=== PATIENT | female | born 1985 | race Caucasian/White ===

== ENCOUNTER 2017-10-24 14:37 | Emergency (ER) | payer OTHER, SELFPAY ==
[2017-10-24 14:39] VITALS: BP 141/72; PULSE 106; RESP 28; TEMP 36.7; O2SAT 100; BMI 20.3
[2017-10-24 14:58] VITALS: PULSE 95; RESP 18; O2SAT 100
--- NOTE | 2017-10-24 15:12 | EKG12_ITS ---
Test Reason : TACHYCARDIA Blood Pressure : / mmHG Vent. Rate : 099 BPM Atrial Rate : 099 BPM P-R Int : 138 ms QRS Dur : 080 ms QT Int : 338 ms P-R-T Axes : 058 082 -13 degrees QTc Int : 433 ms Normal sinus rhythm with sinus arrhythmia ST & T wave abnormality, consider inferior ischemia Abnormal ECG Confirmed by REGINE WANG, AVIVA ([id number]), editorial specialist UNA JASMINE ([id number]) on 10/28/2017 1:50:46 PM Referred By: RAFAEL Confirmed By:AVIVA WEINER MD
--- NOTE | 2017-10-24 15:35 | ED.VISSUMM ---
- ER Visit Summary Date of Service: 10/24/17 Chief Complaint: Shaking History of Present Illness: The patient is a 32 F with as shaking episode. This started about an hour prior to arrival while the patient was at work. She was tremoring all over and complaining of urinary frequency. She felt that her feet and hands were numb. She has a history of anxiety, but symptoms were never this bad. No other significant medical history. She had a 12 years ago. She does smoke cigarettes. I asked her when she was alone and she said that she is not suicidal or homicidal. She denies abuse and feels safe at home. Physical Examination: Vital signs unremarkable. Afebrile. Flat affect and depressed mood. Slightly tachycardic. Lungs clear. Abdomen soft. Calves soft. No focal or lysing neurologic abnormalities. The patient is tremorous all over, almost like shivering. Test Results: We will check urinalysis, test. EKG showed sinus rhythm at a rate of 99. Nonspecific ST and T-wave changes. These may be rate related. Emergency Department Course and Treatment: Patient treated with Ativan while awaiting results. Urinalysis unremarkable. test negative. Patient was reevaluated. Symptoms have resolved. She feels better. No new or worsening issues. I believe this is likely a panic attack. Patient will be prescribed hydroxyzine. She was referred to Dr. Vargas who was on the referral list for new patients today. Patient will return if she has new or worsening issues. Treatment Plan: As above Disposition: Discharged Impression:. Anxiety This note was generated with [employer] dictation software. It may contain incorrect words, spelling, and punctuation that were not noted in review of the chart prior to signing ED Disposition - Plan for ED Patient: Chief Complaint: Anxiety Referrals: Care Physician,No Primary [Primary Care Provider] -
[2017-10-24 15:39] LABS: Bacteria 0 SEEN /hpf (None Seen); Mucous, Urine 0 SEEN /hpf (<or=2+); Red Blood Cells-Urine 0 SEEN /hpf (0-5); White Blood Cells 0 SEEN /hpf (0-5)
[2017-10-24 15:43] LABS: Color, Urine Yellow (Yellow); Glucose, Dipstick Normal (Normal); Ketone-Dipstick Negative (Negative); Leukocyte Esterase-Dipstick Negative /ul (Negative); Nitrite-Dipstick Negative (Negative); Occult Blood-Urine 10 /ul (Negative); Protein-Dipstick Negative (Negative); Urine Bilirubin Dipstick Negative (Negative); Urine Clarity Clear (Clear); Urine Urobilinogen Normal (Normal)
[2017-10-24 15:45] LABS: Internal QC Validated? YES +Cl - CLEAR BKGD; Pregnancy, Urine Negative Negative
[2017-10-24] MEDS: LORazepam 0.5 MG Tablet PO (15:45)
[2017-10-24 16:02] LABS: Squamous Epithelial Cells - UA 0-5 SEEN /hpf (5-10)
--- NOTE | 2017-10-24 16:41 | ED.DEP ---
ED Disposition - Plan for ED Patient: Chief Complaint: Anxiety Instructions: ED Panic Attack Prescriptions: Hydroxyzine HCl 25 mg PO TID #10 tab Referrals: Chris Vargas MD [NON-STAFF] -
[2017-10-24 16:49] VITALS: BP 109/57; PULSE 85; RESP 14; O2SAT 100
--- NOTE | 2017-10-24 16:50 | ED.RN ---
Verbal and written d/c instructions given. All questions answered. Gait steady out of department.
== END 2017-10-24 16:51 | disposition home or self-care (01) ==
PROVIDERS: Emergency Provider Emergency Medicine
DX: F41.9 Anxiety disorder, unspecified (principal); R35.0 Frequency of micturition; F17.210 Nicotine dependence, cigarettes, uncomplicated
CPT/HCPCS: 81001; 81025; 93005; 99284

== ENCOUNTER 2018-04-15 09:04 | Emergency (ER) | payer OTHER, SELFPAY ==
[2018-04-15 09:08] VITALS: BP 116/76; PULSE 83; RESP 18; TEMP 37.1; O2SAT 99; BMI 17.8
--- NOTE | 2018-04-15 09:15 | EKG12_ITS ---
Test Reason : ABNL PAIN Blood Pressure : / mmHG Vent. Rate : 068 BPM Atrial Rate : 068 BPM P-R Int : 152 ms QRS Dur : 072 ms QT Int : 392 ms P-R-T Axes : 060 077 050 degrees QTc Int : 416 ms Normal sinus rhythm Normal ECG Confirmed by REGINE WANG, AVIVA ([id number]), editor in chief newspaper UNA JASMINE ([id number]) on 04/20/2018 3:17:34 PM Referred By: WANDA Confirmed By:AVIVA WEINER MD
--- NOTE | 2018-04-15 09:23 | ED.VISSUMM ---
- ER Visit Summary Date of Service: 04/15/18 Chief Complaint: Epigastric pain History of Present Illness: The patient is a 32 F presents to the emergency department with epigastric pain. The patient states she has been having symptoms for months. She states no matter what she eats, she will get burning pain in her mid chest that goes up into her throat. She states that she gets the pain, she feels like she cannot breathe. She is seen her primary care multiple times. She states that she has been diagnosed with GERD. She has been on Protonix for some time. She is scheduled to see GI, but not until the of this month. She states that when the symptoms come, she feels like she cannot breathe like her throat is closing. She also has a significant history of anxiety. She says no matter what she tries, nothing is really improved her symptoms. She denies any fevers or chills. She denies any weight loss. She denies night sweats. Physical Examination: Vital signs reviewed General: Well-nourished, well-developed Head: Normocephalic, atraumatic Eyes: Pupils equal and reactive, extraocular muscles intact Neck, supple, no lymphadenopathy Heart: Regular rate and rhythm Respiratory: No distress, clear bilaterally Abdomen: Soft, mildly tender in the midepigastric area without rebound or guarding, nondistended, no peritoneal signs Back: Nontender Extremities: Nontender, no edema, no cords Skin: Normal color no rash Neuro: Alert and oriented, no focal or lateralizing deficits Test Results: [] Emergency Department Course and Treatment: The patient presents with persistent symptoms gastritis or GERD. She has minimal tenderness in the midepigastric area. EKG was obtained which was unremarkable. Chest x-ray was also obtained which was unremarkable. The patient declined GI cocktail because she states this gave me a panic attack before. She does have outpatient follow-up in place with GI. I am going to add Carafate and Bentyl to help symptom control. At this time, I do not suspect a dangerous process. I have no concern for perforation. I do feel that she can safely be followed up as an outpatient. Treatment Plan: [] Disposition: Discharge Impression: 1. Gastritis This note was generated with [employer] dictation software. It may contain incorrect words, spelling, and punctuation that were not noted in review of the chart prior to signing ED Disposition - Plan for ED Patient: Chief Complaint: Abd Pain Instructions: ED PUD Vs Gastritis Prescriptions: Dicyclomine HCl [Bentyl] 20 mg PO TIDAC #20 cap Sucralfate [Carafate] 1 gm PO 4X/DAY #100 tab Referrals: Care Physician,No Primary [Primary Care Provider] -
--- NOTE | 2018-04-15 09:37 | RAD_ITS ---
STUDY: X-RAY CHEST REASON FOR EXAM: Female, 32 years old. CHEST PAIN; REFLUX TECHNIQUE: Frontal and lateral views of the chest. COMPARISON: None. FINDINGS: The lungs are clear and expanded. There is no demonstrated pleural abnormality. Normal size heart. Normal mediastinum and alee. Normal visualized pulmonary arteries. Normal visualized aortic arch and descending thoracic aorta. Normal visualized thoracic spine. Normal visualized ribs, clavicles, and shoulders. There is no demonstrated abnormality of the visualized soft tissue structures of the upper abdomen. RAD/Chest PA and Lateral IMPRESSION: Normal x-ray examination of the chest. Electronically Signed: Mag Tillman MD at 10:22 EDT Tel , Service support ,
[2018-04-15 10:16] VITALS: BP 117/64; PULSE 59; RESP 16; O2SAT 100
== END 2018-04-15 10:21 | disposition home or self-care (01) ==
LOC: ED 10:19
PROVIDERS: Emergency Provider Emergency Medicine; Family Provider Physician Assistant; PCP Physician Assistant
DX: K29.70 Gastritis, unspecified, without bleeding (principal); K21.9 Gastro-esophageal reflux disease without esophagitis
CPT/HCPCS: 71046; 93005; 99283

== ENCOUNTER 2018-11-15 15:59 | Emergency (ER) | payer MEDICAID, SELFPAY ==
[2018-11-15 16:00] VITALS: BP 112/77; PULSE 86; RESP 16; TEMP 37; O2SAT 99; BMI 19.4
--- NOTE | 2018-11-15 16:17 | CT_ITS ---
STUDY: CT ABDOMEN AND PELVIS WITHOUT CONTRAST REASON FOR EXAM: Female, 33 years old. Left flank pain. RADIATION DOSAGE (If Supplied By Facility): CTDIvol = ( 6.44 ) mGy, DLP = ( 330.01 ) mGycm TECHNIQUE: Transaxial images were obtained from the dome of the diaphragm to the symphysis pubis without oral contrast, and without intravenous contrast. Sagittal and coronal images were reconstructed. Individualized dose optimization techniques were used for this CT. COMPARISON: None. FINDINGS: The visualized lung bases are unremarkable. The visualized portions of the heart are within normal limits. Normal liver. Normal gallbladder and extrahepatic biliary system. Normal spleen. Normal pancreas. Normal bilateral adrenal glands. Right kidney has a punctate nonobstructing lower pole stone, and is otherwise normal. Normal left kidney. No hydronephrosis on either side. No evidence for renal masses. Evaluation of the GI tract is limited by absence of oral contrast. Cannot exclude stomach wall thickening. No dilated loops of bowel or evidence for obstruction. Cannot exclude segmental thickening of the dunn of the small or large bowel. Cannot exclude enteritis or colitis. Moderate diffuse fecal retention. Appendix within normal limits. Normal abdominal aorta. Normal inferior vena cava. Normal retroperitoneum. Normal urinary bladder. Normal visualized uterus. Normal abdominal wall. Normal osseous structures. CT/Abdomen/Pelvis without Cont IMPRESSION: No definite acute abnormality. Tiny nonobstructing stone of the right kidney. Moderate fecal retention. Electronically Signed: Nikko Love MD at 17:42 EDT , Service support ,
--- NOTE | 2018-11-15 16:17 | ED.VIS.GEN ---
History of Present Illness Chief Complaint: Complaint Informant: Patient, Significant Other Onset: Days - 4 Timing: Waxes and wanes Narrative: Waxing and waning left flank pain for 4 days, pain with moved to the side. Yesterday noted dysuria. No fevers. No vomiting. Mild nausea. History of kidney stones in the past unsure when her last one was. None needed intervention. Does not follow urology. Ibuprofen taken at 9 AM. Saw a urgent care urine with blood questionable infection. Was sent here for evaluation. Reports currently pain is a 4. Normal bowel movements. No fevers. No history of gastric ulcers or kidney injury. Last menstrual period 2 weeks ago. Prior similar symptoms: Yes Past Medical History - Allergies and Home Meds Allergies/Adverse Reactions: Allergies aspirin Adverse Reaction (Verified 11/15/18 16:00) Other HEART RACE, PINS & NEEDLES IN MY FEET Primary Care Physician: Jean Farrar PA [Primary Care Provider] - Smoking Status: Current every day smoker Review of Systems General: Denies: Chills, Fever, Sweats Eyes: Denies: Visual changes - bilaterally, Diplopia ENT: Denies: Rhinorrhea, Sore throat Cardiovascular: Denies: Chest pain, Palpitations Respiratory: Denies: Dyspnea, Cough, Dyspnea on exertion Gastrointestinal: Reports: Nausea Genitourinary: Reports: Dysuria. Denies: Hematuria, Frequency Musculoskeletal: Reports: Back pain Skin: Denies: Rash, Wounds Neurological: Denies: Headache, Weakness, Numbness Physical Exam Vital Signs/Narrative: Vital Signs Temp Pulse Resp BP Pulse Ox 11/15/18 16:00 98.6 F 86 16 112/77 99 Inital Vital Signs reviewed: Yes General: Well nourished, Well developed, No Acute Distress Head: Normocephalic, Atraumatic Eyes: Perrl, EOMI ENT: Moist mucous membranes, No rhinorrhea Neck: Supple, Nontender Cardiovascular: Regular rate, Regular rhythm, No murmurs Respiratory: No distress, CTA bilaterally, Chest nontender Abdomen: Soft, Nontender, Nondistended, Normal bowel sounds Back: Nontender, Normal Inspection, - - No CVA tenderness, no rash. Extremities: Nontender, No edema Skin: Normal color, No rash Neurological: Alert, Oriented x3, Cranial nerves II-XII grossly intact, Normal Strength, Normal Sensation Psychological: Normal affect, Normal Mood Diagnostic/Tx/Re-eval Abnormal Lab Results 11/15/18 11/15/18 11/15/18 16:24 16:24 16:24 WBC 6.3 RBC 4.09 L Hgb 12.2 Hct 37.3 MCV 91.2 MCH 29.8 MCHC 32.7 RDW 12.9 RDW Differential 42.9 Plt Count 226 MPV 10.0 Immature Gran % (Auto) 0.200 Neut % (Auto) 51.1 Lymph % (Auto) 38.7 [place] % (Auto) 8.7 Eos % (Auto) 1.0 Baso % (Auto) 0.3 Absolute Neuts (auto) 3.2 Absolute Lymphs (auto) 2.44 Total Counted Not Reportable Sodium 137 Potassium 3.6 Chloride 108 H Carbon Dioxide 24.0 Anion Gap 5 BUN 14 Creatinine 0.71 Estim Creat Clear Calc 100.34 Est GFR (MDRD) Af Amer 121 Est GFR (MDRD) Non-Af 100 BUN/Creatinine Ratio 19.6 Glucose 89 Calcium 8.5 Serum , Qual NEGATIVE Urine Color Urine Clarity Urine pH Ur Specific [place] Urine Protein Urine Glucose (UA) Urine Ketones Urine Occult Blood Urine Nitrite Urine Bilirubin Urine Urobilinogen Ur Leukocyte Esterase Urine RBC Urine WBC Ur Squamous Epith Cells Urine Bacteria Urine Mucus 11/15/18 16:34 WBC RBC Hgb Hct MCV MCH MCHC RDW RDW Differential Plt Count MPV Immature Gran % (Auto) Neut % (Auto) Lymph % (Auto) [place] % (Auto) Eos % (Auto) Baso % (Auto) Absolute Neuts (auto) Absolute Lymphs (auto) Total Counted Sodium Potassium Chloride Carbon Dioxide Anion Gap BUN Creatinine Estim Creat Clear Calc Est GFR (MDRD) Af Amer Est GFR (MDRD) Non-Af BUN/Creatinine Ratio Glucose Calcium Serum , Qual Urine Color Yellow Urine Clarity Clear Urine pH 6.0 Ur Specific [place] 1.020 Urine Protein Negative Urine Glucose (UA) Normal Urine Ketones Negative Urine Occult Blood 25 H Urine Nitrite Negative Urine Bilirubin Negative Urine Urobilinogen 1 H Ur Leukocyte Esterase 25 H Urine RBC 0-5 SEEN Urine WBC 0-5 SEEN Ur Squamous Epith Cells 0-5 SEEN Urine Bacteria RARE Urine Mucus 3+ CT abdomen pelvis: No obstructive uropathy. Normal appendix. - Medical Decision Making Patient vital signs stable. She declines any medications. Renal stone protocol initiated due to her history. CT scan negative. Labs stable urine did note slight hematuria leukocytes and mucus. Urine culture sent. With her being symptomatic with dysuria will place on antibiotics. Prescription for Keflex along with first dose given the ED. She has antiemetics at home. Should continue Tylenol or Motrin as needed. She will follow-up as an outpatient. All questions were answered. ED Disposition - Plan for ED Patient: Disposition: Home or Assisted Living Diagnosis: Urinary tract infection, Flank pain Instructions: ED UTI Cystitis Female, ED Flank Pain Uncertain Cause Prescriptions: Cephalexin [Keflex] 500 mg PO Q12 #14 capsule Referrals: Jean Farrar PA [Primary Care Provider] - 3-5 Days if not improving
[2018-11-15] MEDS: 0.9% Normal Saline 1,000 ML 250 ML IV (16:31)
[2018-11-15 16:44] LABS: Color, Urine Yellow (Yellow); Glucose, Dipstick Normal (Normal); Ketone-Dipstick Negative (Negative); Leukocyte Esterase-Dipstick 25 /ul (Negative); Nitrite-Dipstick Negative (Negative); Occult Blood-Urine 25 /ul (Negative); Protein-Dipstick Negative (Negative); Urine Bilirubin Dipstick Negative (Negative); Urine Clarity Clear (Clear); Urine Urobilinogen 1 mg/dl (Normal)
[2018-11-15 16:55] LABS: Absolute Lymphocyte Count 2.44 X10^3/ul (0.83-4.51); Absolute Neutrophil Count 3.2 X10^3/uL (2.0-7.7); Basophil# 0.02 X10^3/uL; Basophil% 0.3 % (0-1); Eosinophil# 0.06 X10^3/uL; Hematocrit 37.3 % (37-47); Hemoglobin 12.2 g/dl (12.0-15.0); Lymphocyte # 2.44 X10^3/ul (4.0); Lymphocyte % 38.7 % (19-41); Mean Corp Hgb Conc 32.7 g/gl (32-36); Mean Corpuscular Hgb 29.8 pg (27.0-32.0); Mean Corpuscular Volume 91.2 fL (81-99); Monocyte# 0.55 X10^3/uL; Monocyte% 8.7 % (0-10); Neutrophil # 3.22 X10^3/uL (2.7-7.7); Neutrophil % 51.1 % (47-70); POSITIVE COUNT NO; POSITIVE DIFFERENTIAL NO; POSITIVE MORPHOLOGY NO; Platelet Count 226 K/mm3 (150-450); RBC Distribution Width CV 12.9 % (11.6-14.6); RBC Distribution Width SD 42.9 fl (35.1-43.9); Red Blood Count 4.09 M/mm3 (4.2-5.4); White Blood Count 6.3 K/mm3 (4.4-11.0)
[2018-11-15 16:58] VITALS: BP 114/75; PULSE 75; RESP 16; TEMP 37.2; O2SAT 98
[2018-11-15 17:00] LABS: Anion Gap 5 (5-15); BUN 14 mg/dL (7-18); BUN/Creat Ratio 19.6 RATIO (10-20); Calcium,Total 8.5 mg/dL (8.5-10.1); Chloride 108 mmol/L (98-107); Creatinine, Serum 0.71 mg/dL (0.55-1.02); EST Glomerular Filtration Rate 100 mL/min (>60); Est Glom Filt Rate - Afr Amer 121 mL/min (>60); Estimated Creatinine Clearance 100.34 ml/min; Glucose 89 mg/dL (74-106); Potassium 3.6 mmol/L (3.5-5.1); Sodium Level 137 mmol/L (136-145)
[2018-11-15 17:07] LABS: Internal QC Validated? YES +Cl - CLEAR BKGD; Pregnancy, Serum, hCG Quali. NEGATIVE Negative
[2018-11-15 17:20] LABS: Bacteria RARE /hpf (None Seen); Mucous, Urine 3+ /hpf (<or=2+); Red Blood Cells-Urine 0-5 SEEN /hpf (0-5); Squamous Epithelial Cells - UA 0-5 SEEN /hpf (5-10); White Blood Cells 0-5 SEEN /hpf (0-5)
[2018-11-15 17:29] VITALS: BP 112/87; PULSE 74; RESP 16; TEMP 36.9; O2SAT 98
[2018-11-15 18:14] VITALS: BP 104/72; PULSE 69; RESP 15; O2SAT 100
[2018-11-15] MEDS: Cephalexin 250 MG Capsule 500 MG PO (18:22)
== END 2018-11-15 18:25 | disposition home or self-care (01) ==
PROVIDERS: Emergency Provider Emergency Medicine; Family Provider Physician Assistant; PCP Physician Assistant
DX: N39.0 Urinary tract infection, site not specified (principal); R10.9 Unspecified abdominal pain; F17.200 Nicotine dependence, unspecified, uncomplicated
CPT/HCPCS: 74176; 80048; 81001; 84703; 85025; 87086; 87088; 99283; J7030; A4216

== ENCOUNTER 2020-04-20 15:14 | Emergency (ER) | payer MEDICAID, SELFPAY ==
[2020-04-20 15:16] VITALS: BP 118/70; PULSE 109; RESP 18; TEMP 36.5; O2SAT 98; BMI 19.3
[2020-04-20 15:38] LABS: Bacteria 0 SEEN /hpf (None Seen); Mucous, Urine 0 SEEN /hpf (<or=2+); Red Blood Cells-Urine 0 SEEN /hpf (0-5); White Blood Cells 0 SEEN /hpf (0-5)
[2020-04-20 15:53] LABS: Color, Urine Yellow (Yellow); Glucose, Dipstick Normal (Normal); Ketone-Dipstick Negative (Negative); Leukocyte Esterase-Dipstick Negative /ul (Negative); Nitrite-Dipstick Negative (Negative); Occult Blood-Urine 10 /ul (Negative); Protein-Dipstick Negative (Negative); Specific Gravity, Urine 1.015 (1.002-1.030); Urine Bilirubin Dipstick Negative (Negative); Urine Clarity Sl. Cloudy (Clear); Urine Urobilinogen Normal (Normal)
--- NOTE | 2020-04-20 15:53 | CT_ITS ---
STUDY: CT ABDOMEN AND PELVIS WITHOUT CONTRAST REASON FOR EXAM: Female, 34 years old. BILAT FLANK PAIN, HX [place] RADIATION DOSAGE (If Supplied By Facility): CTDIvol = ( 6.88 ) mGy, DLP = ( 339.00 ) mGycm TECHNIQUE: Transaxial images were obtained from the dome of the diaphragm to the symphysis pubis without oral contrast, and without intravenous contrast. Sagittal and coronal images were reconstructed. Individualized dose optimization techniques were used for this CT. COMPARISON: None. FINDINGS: The visualized lung bases are unremarkable. The visualized portions of the heart are within normal limits. Normal liver. The gallbladder is contracted. Normal spleen. Normal pancreas. Normal bilateral adrenal glands. Normal right kidney. Normal left kidney. Normal visualized stomach. Normal small intestine. Normal colon. The appendix is visualized and appears normal. Normal abdominal aorta. Normal inferior vena cava. Normal retroperitoneum. Normal urinary bladder. Normal abdominal wall. Normal osseous structures. CT/Abdomen/Pelvis without Cont IMPRESSION: Normal unenhanced CT of the abdomen and pelvis. Electronically Signed: Sung Peterson MD at 16:39 EDT Tel , Service support ,
--- NOTE | 2020-04-20 15:54 | ED.DCSUM_ITS ---
- ER Visit Summary Date of Service: 04/20/20 Chief Complaint: [Abdominal pain] History of Present Illness: The patient is a 34 F [presents to the emergency department with complaint of abdominal pain that started about a week and a half ago. Initially the pain was intermittent. She describes pain in her back as well. Patient has history of kidney stones and is concerned she may have a stone. She denies urinary symptoms. She had no fever. She has had nausea but no vomiting. She is been eating normally. Patient states her pain was a 9 out of 10 when she came in but now is better and rates it about a 5 out of 10. Her last menstrual period was 2 weeks ago. She does not believe that she is preg nant because her significant other is had a vasectomy.] Physical Examination: [HEENT-PERRLA, EOMI. Cranial nerves II through XII grossly intact. TMs clear. Mucous membranes moist. No adenopathy. Cardiovascular-regular rate and rhythm without murmur or ectopy Lungs-clear to auscultation, chest wall stable without crepitus or subcu emphysema Abdomen-normoactive bowel sounds, soft. Patient has tenderness palpation diffusely over the right lower quadrant as well as the left lower quadrant. Mild CVA tenderness on the left. Patient has no rebound, rigidity, or periton eal signs. Extremities-intact ?4, normal range of motion, normal pulses, atraumatic] Test Results: [CBC with differential obtained showing of 8.6, hemoglobin 12, hematocrit 39, platelet 85. Chemistries unremarkable. hCG was negative. Urinalysis unremarkable. CT scan of the abdomen pelvis showed nothing acute] Emergency Department Course and Treatment: [IV line established on arrival. Patient refused any pain medication.] Treatment Plan: [Patient advised to use ibuprofen or Tylenol for discomfort. Patient to follow-up with her primary care physician in 3 to 5 days. She is advised to return if worsening pain, fever, vomiting, or conditions worsen anyway.] Disposition: [Discharged home in stable condition] Impression: [Abdominal pain-etiology uncertain] This note was generated with [employer] software. It may contain incorrect words, spelling, and punctuation that were not noted in review of the chart prior to signing ED Disposition - Plan for ED Patient: Referrals: Jean Farrar PA [Primary Care Provider] -
[2020-04-20] MEDS: 0.9% Normal Saline 1,000 ML 125 ML IV (16:02)
[2020-04-20 16:04] LABS: Absolute Lymphocyte Count 2.91 X10^3/uL (0.83-4.51); Absolute Neutrophil Count 5.1 X10^3/uL (2.0-7.7); Basophil# 0.03 X10^3/uL; Basophil% 0.3 % (0-1); Eosinophil# 0.12 X10^3/uL; Eosinophils% 1.4 % (0-5); Hematocrit 38.7 % (37-47); Hemoglobin 12.4 g/dL (12.0-15.0); Lymphocyte # 2.91 X10^3/ul (4.0); Lymphocyte % 33.7 % (19-41); Mean Corpuscular Hgb 30.6 pg (27.0-32.0); Mean Corpuscular Volume 95.6 fL (81-99); Mean Platelet Vol. 10.3 fl (6.2-12.0); Monocyte# 0.48 X10^3/uL; Monocyte% 5.6 % (0-10); NRBC Flagged by Analyzer 0 % (0-5); Neutrophil # 5.07 X10^3/uL (2.7-7.7); Neutrophil % 58.8 % (47-70); Platelet Count 285 K/mm3 (150-450); RBC Distribution Width CV 12.8 % (11.6-14.6); RBC Distribution Width SD 45.1 fl (35.1-43.9); Red Blood Count 4.05 M/mm3 (4.2-5.4); White Blood Count 8.6 K/mm3 (4.4-11.0)
[2020-04-20 16:09] LABS: Internal QC Validated? YES +Cl - CLEAR BKGD; Pregnancy, Serum, hCG Quali. NEGATIVE Negative
[2020-04-20 16:14] LABS: Anion Gap 2 (5-15); BUN 11 mg/dL (7-18); BUN/Creat Ratio 14.2 RATIO (10-20); Calcium,Total 8.8 mg/dL (8.5-10.1); Chloride 107 mmol/L (98-107); Creatinine, Serum 0.77 mg/dL (0.55-1.02); EST Glomerular Filtration Rate 90 mL/min (>60); Est Glom Filt Rate - Afr Amer 109 mL/min (>60); Estimated Creatinine Clearance 88.41 ml/min; Glucose 111 mg/dL (74-106); Potassium 3.7 mmol/L (3.5-5.1); Sodium Level 138 mmol/L (136-145)
[2020-04-20 17:10] LABS: Amorphous Sediment 3+; Coarse Granular Cast 5-10 SEEN /lpf (0-5 /lpf); Squamous Epithelial Cells - UA 5-10 SEEN /hpf (5-10)
--- NOTE | 2020-04-20 17:17 | ED.DEP ---
ED Disposition - Plan for ED Patient: Instructions: ED Abdominal Pain Unkn Cause Fem Referrals: Jean Farrar PA [Primary Care Provider] - 3-5 Days
[2020-04-20 17:27] VITALS: BP 93/58; PULSE 71; RESP 17; O2SAT 100
== END 2020-04-20 17:29 | disposition home or self-care (01) ==
LOC: ED 16:13
PROVIDERS: Emergency Provider Emergency Medicine; PCP Physician Assistant
DX: R10.31 Right lower quadrant pain (principal); R10.32 Left lower quadrant pain; Z87.442 Personal history of urinary calculi; Z72.0 Tobacco use
CPT/HCPCS: 74176; 80048; 81001; 84703; 85025; 96360; 99282; J7030; A4216

== ENCOUNTER 2020-12-02 14:27 | Emergency (ER) | payer MEDICAID, SELFPAY ==
[2020-12-02 14:28] VITALS: BP 106/66; PULSE 84; RESP 16; TEMP 36.4; O2SAT 99; BMI 20.8
--- NOTE | 2020-12-02 14:54 | EDS_ITS ---
HPI History of Present Illness Chief Complaint: Laceration Detail of Chief Complaint: Injury to left jaw that occurred prior to arrival in the emergency departme Informant: patient Narrative Narrative: Patient states that she was fishing and she try to set the hook on a fish when the 1 ounce sinker came flying out of the water and struck her in the left side of the jaw. No loss of consciousness. She did sustain a laceration to the jaw. Patient unsure of her last tetanus shot. Tetanus Immunization: Unknown Prior similar symptoms: No PFSH PFS Medical History (Updated 12/02/20 @ 15:[address] Sparkle Bender, DO) Anxiety Home Medications Clonazepam 0.5 mg PO BID 04/15/18 [History Last Taken 11/15/18] Allergy/AdvReac Type Severity Reaction Status Date / Time aspirin AdvReac Other Verified 12/02/20 14:27 Social History Smoking Status: Current every day smoker ROS ROS ED Constitutional Constitutional ED: Reports systems reviewed and no addt'l complaints, except as documented; Denies body ache(s), change in weight or chills Eyes Eyes: Denies acute decrease in peripheral vision, change in vision, double vision or loss of vision ENT ENT ED: Reports none and other Details: Laceration left mandible ; Denies ear p ain, lip swelling, loss taste/smell, neck pain, otalgia or sore throat Cardiovascular Cardiovascular: Reports none; Denies abdominal pain, chest pain with activity, leg edema, lightheadedness, palpitations, rapid heart rate or syncope Respiratory/Chest Respiratory/Chest: Reports none; Denies change in mental status, dry cough, dyspnea, hemoptysis, shortness of breath at rest or shortness of breath with exertion Gastrointestinal Gastrointestinal: Reports none; Denies abdominal pain, change in stool charac ter, diarrhea, hematemesis, hematochezia, melena, rectal bleeding or vomiting Genitourinary Genitourinary ED: Reports none; Denies abdominal discomfort, anuria, dysuria, genital pain or polyuria Musculoskeletal Musculoskeletal: Reports none; Denies arthralgias, back pain, difficulty walking, extremity pain, muscle weakness or myalgias Integumentary Reports none; Denies abscess or rash Neurologic Neurologic: Reports none; Denies abnormal gait, confusion, focal weakness, frequent falls, headache(s), loss of vision, numbness, paresthesias, radicular pain, vertigo or weakness Psychiatric Psychiatric: Reports systems reviewed and no addt'l complaints, except as documented and none; Denies behavioral changes, confusion, difficulty conc entrating, hallucinations, suicidal ideation, tactile hallucinations or visual hallucinations Endocrine Endocrinology: Denies none, cold intolerance, excessive sweating, fatigue or heat intolerance Hematologic/Lymphatic Hematologic/Lymphatic: Reports none; Denies anemia, easy bleeding or easy bruising Allergic/Immunologic Allergic/Immunologic ED: Denies as per HPI, none, lip swelling, mouth swelling, throat swelling, tongue swelling or hives EXAM Physical Exam Const Vital Signs: 12/02/20 14:28 Temperature 97.6 F L Temperature Source Temporal Pulse Rate 84 Respiratory Rate 16 Blood Pressure 106/66 Blood Pressure Mean 79 Pulse Ox 99 Oxygen Delivery Method Room Air Positive well nourished and well developed General Appearance ED: well developed and NAD HEENT Reports TM's clear and moist mucous membranes HEENT Narrative: Patient has a 1.5 cm laceration that is Y-shaped over the left mandible region. No real bony tenderness on exam over the mandible. She is able to bite down on a tongue blade and hold in place against resistance. No malocclusion noted. normocephalic and atraumatic; Negative for trauma or tenderness Tympanic Membrane ED: Yes TM's clear Eyes PERRL and EOMs intact bilaterally General Eye ED: Negative for pale conjunctiva or scleral icterus Neck no lymphadenopathy, supple and no JVD General: Negative for tenderness Chest Wall inspection of chest normal and palpation of chest normal Chest: Negative for tenderness Resp normal respiratory effort and clear to auscultation bilaterally Effort and Inspection: Negative for respiratory distress or pain with movement Auscultation: Negative for rhonchi, wheezes or diminished lung sounds Cardio regular rate, regular rhythm, S1 normal heart sound, S2 normal heart sound and no murmurs Peripheral Pulses: pulses 2+ throughout GI normal to inspection, nondistended, normoactive bowel sounds, soft to palpation, non-tender, non-distended and no masses Back/Spine no CVA tenderness and no thoracic nor lumbar tenderness Extremity normal to inspection General Extremety ED: Negative for edema General Extremity: Negative for edema Neuro oriented x3, CN's II-XII intact bilaterally, no sensory deficits noted and gait normal Sensorium / Orientation: awake, alert, oriented to person, oriented to place and oriented to time Motor Exam: strength 5/5 throughout and strength abnormal Psych mental status grossly normal Skin no rashes or lesions noted and no wounds PROC Procedures Lacerations Chin laceration: Length: 0.39 in Depth: Skin Prep: Sterile Conditions and Shure-Clens Irrigated (ml): 50 Number of Sutures/Gazelle: 2 Suture Information: Ethilon and Simple MDM MDM MDM Narrative Medical decision making narrative: Patient to follow-up with primary care physician in 5 to 7 days for suture removal. To return if increasing pain, redness, swelling, purulent drainage, or conditions worsen anyway. Discharge Plan Triage Chief Complaint: Laceration ED Provider: Sparkle Bender Dx/Rx/DC Orders Clinical Impression: Chin laceration Instructions: ED Laceration, Face: Stitches or Tape Prescriptions: No Action Clonazepam 0.5 MG tablet 0.5 mg PO BID RF: 0 Primary Care Provider: Jean Farrar Referrals: Jean Farrar PA [Primary Care Provider] - 5 Days for suture removal Disposition Disposition: Home, self care
[2020-12-02] MEDS: Lidocaine 1% (20 ml mdv) 20 ML Vial INFILT (15:14)
[2020-12-02] MEDS: Diphth,Pertuss(Acell),Tet Vac 0.5 ML Vial IM (15:52)
== END 2020-12-02 15:56 | disposition home or self-care (01) ==
PROVIDERS: Emergency Provider Emergency Medicine; PCP Physician Assistant
DX: S01.81XA Laceration without foreign body of other part of head, initial encounter (principal); F41.9 Anxiety disorder, unspecified; F17.200 Nicotine dependence, unspecified, uncomplicated; Z79.82 Long term (current) use of aspirin; W20.8XXA Other cause of strike by thrown, projected or falling object, initial encounter; Y93.89 Activity, other specified; Y92.89 Other specified places as the place of occurrence of the external cause; Y99.9 Unspecified external cause status
CPT/HCPCS: 12011; 90471; 90715; 99283; J7050; A4216

== ENCOUNTER 2021-04-21 15:58 | Emergency (ER) | payer MEDICAID, SELFPAY ==
[2021-04-21 15:58] VITALS: BP 133/78; PULSE 98; RESP 18; TEMP 37.1; O2SAT 100; BMI 19.1
[2021-04-21 16:25] VITALS: BP 133/78; PULSE 98; RESP 18; TEMP 37.1; O2SAT 100
--- NOTE | 2021-04-21 16:46 | EX.ED.DYSGE1 ---
HPI History of Present Illness Chief Complaint: General Illness Informant: patient and spouse/S.O. Narrative Narrative: 35-year-old female presents to the emergency room with concerns for COVID-19 infection. Patient states for the past 3 days she has lost her sense of taste. She notes some fatigue and nausea. No shortness of breath or significant cough. Her mother was just admitted with COVID-19. She is unvaccinated. [facility] Medical History Anxiety Home Medications Clonazepam 0.5 mg PO BID 04/15/18 [History Last Taken 11/15/18] omeprazole 40 mg PO DAILY 04/21/21 [History Last Taken Unknown] venlafaxine 37.5 mg PO DAILY 04/21/21 [History Last Taken Unknown] Allergy/AdvReac Type Severity Reaction Status Date / Time aspirin AdvReac Other Verified 12/02/20 14:27 Surgical History H/O hernia repair Social History (Updated 04/21/21 @ 16:[address] Bakari Cochran DO) Smoking Status: Current every day smoker tobacco type: cigarettes substance use type: does not use ROS ROS ED Constitutional Constitutional ED: Reports chills and sweats; Denies weight loss Eyes Eyes: Denies change in vision or diplopia ENT ENT ED: Reports other Details: Loss of taste ; Denies ear pain, rhinorrhea or sore throat Cardiovascular Cardiovascular: Denies chest pain, orthopnea, palpitations or racing heartbeat Respiratory/Chest Respiratory/Chest: Denies cough, dyspnea or orthopnea Gastrointestinal Gastrointestinal: Reports nausea; Denies abdominal pain, diarrhea or vomiting Genitourinary Genitourinary ED: Denies dysuria, hematuria or urinary frequency Musculoskeletal Musculoskeletal: Reports myalgias; Denies arthralgias Integumentary Denies abscess or rash Neurologic Neurologic: Reports headache(s); Denies weakness Psychiatric Psychiatric: Denies anxiety, depression, suicidal ideation or suicidal thoughts Endocrine Endocrinology: Denies polydipsia, polyphagia or polyuria Allergic/Immunologic Allergic/Immunologic ED: Denies mouth swelling, tongue swelling or urticaria EXAM Physical Exam Const Vital Signs: 04/21/21 15:58 04/21/21 16:08 04/21/21 16:25 Temperature 98.7 F 98.7 F Temperature Source Temporal Oral Pulse Rate 98 98 Respiratory Rate 18 18 Respiratory Effort Normal Non-Labored Respiratory Pattern Normal Blood Pressure 133/78 H 133/78 H Blood Pressure Mean 96 96 Pulse Ox 100 100 Oxygen Delivery Method Room Air Room Air Positive well nourished and well developed General Appearance ED: well developed HEENT Reports normocephalic, head/scalp atraumatic and moist mucous membranes Eyes PERRL and EOMs intact bilaterally Neck no lymphadenopathy, supple and no JVD Resp normal respiratory effort and clear to auscultation bilaterally Cardio regular rate, regular rhythm and no murmurs GI normal to inspection, nondistended, normoactive bowel sounds and non-tender Palpation: soft Back/Spine no CVA tenderness and normal ROM Extremity normal to inspection General Extremety ED: Negative for edema General Extremity: Negative for edema Neuro oriented x3 and CN's II-XII intact bilaterally Sensorium / Orientation: alert Motor Exam: strength 5/5 throughout Psych mental status grossly normal Mood & Affect: Negative for depressed or tearful Skin no rashes or lesions noted and no wounds MDM MDM MDM Narrative Medical decision making narrative: Patient's Covid test is positive. She is currently 100% on room air. Patient will be discharged home with supportive care return if worsening or concerns Discharge Plan Triage Chief Complaint: General Illness ED Provider: Bakari Cochran Dx/Rx/DC Orders Clinical Impression: COVID-19 Instructions: Coronavirus Disease 2019 (COVID-19): Caring for Yourself or Others Prescriptions: No Action Clonazepam 0.5 MG tablet 0.5 mg PO BID RF: 0 omeprazole 40 mg capsule,delayed release(DR/EC) 40 mg PO DAILY RF: 0 venlafaxine 37.5 mg tablet 37.5 mg PO DAILY RF: 0 Primary Care Provider: Jean Farrar Referrals: Jean Farrar, PA [Primary Care Provider] - As Needed Disposition Disposition: Home, Self Care
[2021-04-21 17:59] VITALS: PULSE 80; RESP 15; O2SAT 100
== END 2021-04-21 17:59 | disposition home or self-care (01) ==
PROVIDERS: Emergency Provider Emergency Medicine; PCP Physician Assistant
DX: U07.1 COVID-19 (principal); F17.210 Nicotine dependence, cigarettes, uncomplicated; F41.9 Anxiety disorder, unspecified; Z79.82 Long term (current) use of aspirin; Z28.3 Underimmunization status
CPT/HCPCS: 87426; 99282

== ENCOUNTER 2024-11-13 18:22 | Emergency (ER) | payer OTHER, SELFPAY ==
[2024-11-13 18:23] VITALS: BP 115/69; PULSE 82; RESP 18; TEMP 35.5; O2SAT 100; BMI 21.1
--- NOTE | 2024-11-13 18:31 | EX.ED.UPPERE ---
HPI History of Present Illness HPI Narrative: Patient presents with foreign body in her left thumb that occurred today. Patient states she opened a new fishing lower out of the package and the hook went into her thumb. Patient states her pain is aching. Patient states it is localized to the left thumb. Patient denies any paresthesias or weakness. Patient states her last tetanus was 1 to 2 years ago. Chief Complaint: Foreign Body Informant: patient Occured/Mechanism Mechanism/Context: Yes puncture wound Onset/Context/Timing Onset: Today Context: Sudden Onset Timing: Continuous Quality of Pain: Aching Location: Left thumb Worsened by: Movement Relieved by: Nothing Associated Symptoms Associated Symptoms: Negative for Parasthesia, Weakness or Loss of Funtion [facility] Medical History Anxiety Home Medications ?Medication ?Instructions ?Recorded ?Last Taken ?Type Clonazepam 0.5 mg PO BID 04/15/18 11/15/18 History omeprazole 40 mg capsule,delayed 40 mg PO DAILY 04/21/21 Unknown History release venlafaxine 37.5 mg tablet 37.5 mg PO DAILY 04/21/21 Unknown History Allergy/AdvReac Type Severity Reaction Status Date / Time aspirin AdvReac Other Verified 11/13/24 18:23 Surgical History H/O hernia repair Social History Smoking Status: Current every day smoker tobacco type: cigarettes substance use type: does not use ROS ROS ED Constitutional Constitutional ED: Denies chills or fever(s) Eyes Eyes: Denies blurry vision or change in vision ENT ENT ED: Denies rhinorrhea or sore throat Cardiovascular Cardiovascular: Denies chest pain or palpitations Respiratory/Chest Respiratory/Chest: Denies cough or dyspnea Gastrointestinal Gastrointestinal: Denies nausea or vomiting Genitourinary Genitourinary ED: Denies dysuria or hematuria Musculoskeletal Musculoskeletal: Denies back pain or neck pain Integumentary Denies abscess or rash Neurologic Neurologic: Denies headache(s) or weakness Allergic/Immunologic Allergic/Immunologic ED: Denies mouth swelling or urticaria EXAM Physical Exam Const Vital Signs: 11/13/24 18:23 Temperature 96 F L Temperature Source Temporal Pulse Rate 82 Respiratory Rate 18 Blood Pressure 115/69 Blood Pressure Mean 84 Pulse Ox 100 Oxygen Delivery Method Room Air Positive well nourished and well developed General Appearance ED: well developed and NAD HEENT Reports moist mucous membranes Neck full ROM and supple Extremity Extremity Narrative: There is a fishing lure and hook embedded in the volar aspect of the left thumb near the IP joint. There is no active bleeding noted. Range of motion was limited in flexion of the IP and MP joint secondary to pain. Sensation was intact to light touch in all digits. Capillary refill was less than 2 seconds in all digits. Neuro oriented x3, CN's II-XII intact bilaterally, moves all extremities, no focal motor deficits and no sensory deficits noted Sensorium / Orientation: alert Motor Exam: strength 5/5 throughout Psych mental status grossly normal MDM MDM MDM Narrative Medical decision making narrative: The left thumb was cleaned and anesthetized 1% lidocaine via digital block. The fishhook was pushed through the skin and the laura was cut off. The hook was then removed without difficulty. Patient tolerated procedure well. Bacitracin dressing was applied. Since the hook was brand-new out of the package, I do not feel the patient requires antibiotics at this time. Patient and spouse understand and are agreeable with the plan. All questions were answered. Discharge Plan Triage Chief Complaint: Foreign Body ED Provider: Caleb Glynn Dx/Rx/DC Orders Clinical Impression: Acute foreign body of left thumb, Tobacco use Instructions: ED Foreign Body, Soft Tissue (Removed) Prescriptions: No Action Clonazepam 0.5 MG tablet 0.5 mg PO BID omeprazole 40 mg capsule,delayed release(DR/EC) 40 mg PO DAILY Patient Comments: TAKE 1 CAPSULE BY MOUTH ONCE DAILY venlafaxine 37.5 mg tablet 37.5 mg PO DAILY Patient Comments: TAKE 1 2 (ONE HALF) TABLET BY MOUTH ONCE DAILY WITH DINNER FOR 7 DAYS THEN INCREASE TO 1 TABLET DAILY WITH DINNER Primary Care Provider: Jean Farrar Referrals: Jean Farrar PA [Primary Care Provider] - 1-2 Weeks Print Language: [place] Disposition Disposition: Home, Self Care
[2024-11-13] MEDS: Lidocaine 1% (20 ml mdv) 20 ML Vial INFILT (18:35)
== END 2024-11-13 19:21 | disposition home or self-care (01) ==
PROVIDERS: Emergency Provider Emergency Medicine; PCP Physician Assistant; Visit Provider Emergency Medicine
DX: S61.042A Puncture wound with foreign body of left thumb without damage to nail, initial encounter (principal); Z72.0 Tobacco use; W45.8XXA Other foreign body or object entering through skin, initial encounter
CPT/HCPCS: 64450; 99282